=== PATIENT | male | born 1945 | race Caucasian/White ===

== ENCOUNTER 2023-04-13 18:33 | Emergency (ER) | payer BC ==
[~2023-04-13] VITALS: Ht 177.8 cm; Wt 85.0 kg
[2023-04-13 18:37] VITALS: O2SAT 97
[2023-04-13] MEDS ORDERED: IBUPROFEN 600MG TABLET PO STA (23:58)
[2023-04-14 01:15] VITALS: TEMP 98.6
[2023-04-14 01:16] LABS: CLARITY URINE CLEAR (CLEAR); COLOR URINE YELLOW (YELLOW); GLUCOSE URINE NEGATIVE (NEGATIVE); KETONES URINE NEGATIVE (NEGATIVE); LEUKOCYTE ESTERASE URINE NEGATIVE (NEGATIVE); NITRITE URINE NEGATIVE (NEGATIVE); OCCULT BLOOD URINE TRACE (NEGATIVE); PH URINE 5.5 (4.5-8.0); PROTEIN URINE TRACE (NEGATIVE); SPECIFIC GRAVITY URINE 1.023 (1.005-1.030)
[2023-04-14 01:19] LABS: BACTERIA URINE NONE SEEN; RBC URINE 0-2 /hpf (0-2); SQUAMOUS EPITHELIAL CELL URINE NONE SEEN /lpf (RARE/1+); WBC URINE NONE SEEN /hpf (0-2); YEAST URINE NONE SEEN
[2023-04-14] MEDS ORDERED: NAPR-681 PO (02:00)
[2023-04-14] MEDS ORDERED: TRAMADOL 50MG TABLET PO ONE (02:00)
[2023-04-14] MEDS ORDERED: GABA-532 PO (02:00)
[2023-04-14 02:34] VITALS: BP 214/98; PULSE 69; RESP 18
== END 2023-04-14 02:39 | disposition home or self-care (01) ==
LOC: ER 18:33
DX: M25.552 Pain in left hip (principal); M54.42 Lumbago with sciatica, left side; M16.0 Bilateral primary osteoarthritis of hip; M47.896 Other spondylosis, lumbar region; Z88.0 Allergy status to penicillin
CPT/HCPCS: 72100; 73502; 81003; 93971; 99285